=== PATIENT | male | born 1950 | race Caucasian/White ===

== ENCOUNTER → 2016-11-19 | Outpatient (CLI) | payer BC ==
[~2016-11-19] MED LIST: ASCO500T3 PO; ASPEC325 PO; HYDR-4079 PO; LCTX PO; MULT-506 PO; [UNRECOGNIZED DRUG - CODE] PO
[2016-11-19 17:38] LABS: ALT/SGPT 45 U/L (12-78); AST/SGOT 31 U/L (15-37); BLOOD UREA NITROGEN 14 mg/dl (7-18); BUN/CREATININE RATIO 16.2 (10-20); CALCIUM 8.7 mg/dl (8.5-10.1); CARBON DIOXIDE 26 mmol/L (21-32); CHLORIDE 107 mmol/L (98-107); CHOLESTEROL 199 mg/dl (0-200); CREATININE 0.88 mg/dl (0.60-1.40); GLUCOSE 95 mg/dl (70-99); SODIUM 141 mmol/L (136-145)
[2016-11-19 17:45] LABS: CHOLESTEROL/HDL RATIO 3.4; HDL CHOLESTEROL 59 mg/dl; LDL CHOLESTEROL CALCULATED 115 mg/dl; TRIGLYCERIDES 126 mg/dl (0-150); VERY LOW DENSITY LIPOPROT CALC 25 mg/dl
[2016-11-20 06:17] LABS: ESTIMATED AVERAGE GLUCOSE 128 mg/dl; HA1C FLAG Normal (Normal)
== END | disposition home or self-care (01) ==
LOC: C.LABBFT 13:48
PROVIDERS: ATTEND Internal Medicine
DX: R97.20 Elevated prostate specific antigen [PSA] (principal); R73.03 Prediabetes; E78.5 Hyperlipidemia, unspecified

== ENCOUNTER → 2016-12-13 | Outpatient (CLI) | payer OTHER, BC ==
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
== END | disposition home or self-care (01) ==
LOC: C.RAD1850 13:57
PROVIDERS: ATTEND Nurse Practitioner Family
DX: M25.561 Pain in right knee (principal)

== ENCOUNTER → 2016-12-20 | Outpatient (CLI) | payer OTHER, BC ==
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
== END | disposition home or self-care (01) ==
LOC: C.MRI 07:33 → EDSTATUS 08:00
PROVIDERS: ATTEND Nurse Practitioner Family
DX: M25.561 Pain in right knee (principal); R60.0 Localized edema; M25.461 Effusion, right knee; S83.241A Other tear of medial meniscus, current injury, right knee, initial encounter; X58.XXXA Exposure to other specified factors, initial encounter

== ENCOUNTER → 2017-08-29 | Outpatient (CLI) | payer BC, OTHER | END | disposition home or self-care (01) | LOC: C.RDSM 08:00 | PROVIDERS: ATTEND Orthopaedic Surgery Sports Medicine | DX: S89.91XA Unspecified injury of right lower leg, initial encounter (principal); X58.XXXA Exposure to other specified factors, initial encounter; Z88.6 Allergy status to analgesic agent; Z88.8 Allergy status to other drugs, medicaments and biological substances ==

== ENCOUNTER → 2017-10-15 | Outpatient (CLI) | payer OTHER, BC ==
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
== END | disposition home or self-care (01) ==
LOC: C.RAD1850 15:14
PROVIDERS: ATTEND Nurse Practitioner Family
DX: S09.90XA Unspecified injury of head, initial encounter (principal); S39.92XA Unspecified injury of lower back, initial encounter; M25.561 Pain in right knee; X58.XXXA Exposure to other specified factors, initial encounter

== ENCOUNTER → 2017-10-15 | Outpatient (CLI) | payer OTHER, BC ==
[2017-10-15 17:39] LABS: BLOOD UREA NITROGEN 14 mg/dl (7-18); CREATININE 0.83 mg/dl (0.60-1.40)
== END | disposition home or self-care (01) ==
LOC: C.LAB1850 16:20
PROVIDERS: ATTEND Nurse Practitioner Family
DX: N18.9 Chronic kidney disease, unspecified (principal)

== ENCOUNTER → 2017-10-17 | Outpatient (CLI) | payer OTHER, BC ==
[~2017-10-17] MED LIST changes: +OPTIRAY 320 IV PRN
--- NOTE | 2017-10-17 17:28 | DIAGNOSTIC IMAGING REPORT ---
HEAD COMBO CLINICAL HISTORY: 67 years-old Male presenting with CONCUSSION,R/O SUBDERMAL HEMATOMA. TECHNIQUE: Multidetector CT imaging of the head was performed before and after the administration of intravenous contrast. IV contrast: 90 mL of Optiray 320. A dose lowering technique was used consistent with the principles of ALARA (as low as reasonably achievable). COMPARISON: None. CT DOSE (mGy.cm): The estimated cumulative dose is 1277.12 mGycm. FINDINGS: Curing Bin Operator topogram: The patient is edentulous. Ventricles and sulci normal in size. Brain parenchyma normal in appearance with preserved giron-white differentiation. No mass effect or midline shift. No hemorrhage or acute territorial infarct. No extra-axial fluid collection. Paranasal sinuses and mastoid air cells clear. Calvarium intact. No abnormal parenchymal enhancement. Intracranial vasculature grossly patent. IMPRESSION: 1. No acute intracranial pathology. No abnormal enhancement. Electronically signed by: Mikael Aguilar M.D. 10/17/2017 5:26 PM Dictated Date/Time: 10/17/2017 5:23 PM
== END | disposition home or self-care (01) ==
LOC: C.CTS 16:26
PROVIDERS: ATTEND Nurse Practitioner Family
DX: S20.20XA Contusion of thorax, unspecified, initial encounter (principal); S06.0X9A Concussion with loss of consciousness of unspecified duration, initial encounter; X58.XXXA Exposure to other specified factors, initial encounter

== ENCOUNTER 2022-09-04 15:03 | Inpatient (IN) ==
[2022-09-04 16:14] LABS: Basophils # (auto) 0.03 K/uL (0-0.2); Basophils % (auto) 0.3 %; Eosinophils # (auto) 0.03 K/uL (0-0.50); Eosinophils % (auto) 0.3 %; Hemoglobin 11.8 g/dl (14.0-18.0); Immature Granulocytes # (auto) 0.04 K/uL (0.01-0.20); Immature Granulocytes % (auto) 0.4 %; Lymphocytes % (auto) 13.1 %; Mean Corpuscular Hemoglobin 30.6 pg (25.0-34.0); Mean Corpuscular Hgb Conc 33.7 g/dL (32.0-36.0); Mean Corpuscular Volume 90.7 fL (80.0-100.0); Mean Platelet Volume 8.8 fL (9.4-12.4); Monocytes # (auto) 0.84 K/uL (0.11-0.59); Monocytes % (auto) 8.5 %; Neutrophils # (auto) 7.65 K/uL (1.40-6.50); Neutrophils % (auto) 77.4 %; Platelet Count 244 K/uL (130-400); RDW Coefficient of Variation 12.4 % (11.5-14.5); RDW Standard Deviation 40.8 fL (36.4-46.3); Red Blood Count 3.86 M/uL (4.70-6.10); White Blood Count 9.89 K/ul (4.8-10.8)
[2022-09-04 16:38] LABS: Albumin Globulin Ratio 0.8 (0.9-2); Albumin Level 3.6 gm/dl (3.4-5.0); BUN Creatinine Ratio 16.7 (10-20); Bilirubin,Total 0.5 mg/dl (0.2-1.0); Calcium 9.1 mg/dl (8.5-10.1); Est GFR (African American) 105.3 ml/min; Est GFR (Non-African American) 90.8 ml/min; Globulin 4.4 gm/dl (2.5-4.0)
[2022-09-04 16:51] LABS: INR 1.1 (0.9-1.1); Partial Thromboplastin Ratio 1.1; Partial Thromboplastin Time 31.3 Seconds (21.0-31.0); Prothrombin Time 11.2 Seconds (9.0-12.0)
--- NOTE | 2022-09-04 17:00 | Emergency Department Note ---
Impression & Plan Pneumonia ADMIT ED Provider Note HPI: The patient is a 72-year-old male who presents emergency department with a chief complaint of cough and shortness of breath. Patient states that he was seen [facility], diagnosed with pneumonia and told to go to the emergency room. Patient states that he was told not to drive himself but he did anyway, on arrival here to the ED he was noted to be hypoxic in the 80s and was placed on nasal cannula oxygen with good improvement. Patient states that he has had a cough now for about the past 2 to 3 weeks. States it has been productive for some mucus. Patient states he has developed some shortness of breath with this as well. On arrival here to the ED the patient was noted to be hypoxic, he is otherwise afebrile and hemodynamically stable. ROS: - Per HPI *Outpatient medications and allergy history reviewed. *Pertinent external medical records reviewed. 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 On arrival to the ED the patient is hypoxic at 85% on room air and therefore was placed on nasal cannula oxygen with good improvement. IV was established, lab work obtained, patient was placed on cardiac nurse. Lab work does not show any leukocytosis, troponin is negative, EKG shows normal sinus rhythm with a rate of 88. Chest x-ray does show evidence of a bibasilar pneumonia and multifocal pneumonia pattern with also right-sided midlung op acity. I do suspect this is the source of the patient's hypoxia given his shortness of breath and cough. COVID-19 testing is negative as is influenza testing he does not have a fever, he does not have a leukocytosis, blood cultures were ordered and patient was started on ceftriaxone and azithromycin, he does have a longstanding history of smoking. Venous blood gas shows normal pH. Given the patient's hypoxia, I did recommend admission to which the patient was in agreement as is his at the bedside. Consultation was placed for the on- call hospitalist service for admission, and the patient was placed for admission in stable condition for further care. Consultants: Hospitalist service Disposition discussion held by myself with: Patient and at bedside * CRITICAL CARE TIME: ( 42 ) minutes -Stabilization of hypoxia with oxygen saturation less than 90% on room air requiring supplemental oxygen for improvement, time spent at the bedside, interpretation of EKG and diagnostic studies, and arrangement of admission Diagnosis: 1. Multifocal pneumonia, acute 2. Hypoxia, acute 3. Cough, acute Disposition:ADMIT Paul Mir, DO Emergency Medicine Past Med/Surg History Medical History BPH (benign prostatic hyperplasia) Chronic pain Hx of concussion Hypothyroidism Low back pain Osteoarthritis Pneumonia (2016) Tinnitus Surgical History H/O colonoscopy History of arthroscopy History of microdiscectomy History of tooth extraction S/P thyroid biopsy Family History Unknown Coronary heart disease Mother Vitamin B12 deficiency Father Myocardial infarction Daughter Crohn's disease Denies family history of Prostate cancer Breast cancer Colorectal cancer Social History Smoking Status: Current every day smoker Tobacco Type: Cigarettes packs per day: 1; Cigarettes Per Day: 1 pk or less per day; Second Hand Exposure: No; Hx Alcohol Use: No Hx Substance Use: No Preferred Language: Kinyarwanda Communication Ability: Effective 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 Beliefs That Will Affect Care: None marital status: Current Living Situation: Spouse current occupational status: unemployed How many Children do You have: 2 Feels Safe at Home: Yes during the past year weight has: remained stable Assistive Devices: Denture - Upper, Denture - Lower and Glasses Allergies Allergies Allergy/AdvReac Type Severity Reaction Status Date / Time gabapentin Allergy Intermediate CAUSED Verified 09/04/22 17:13 TINNITIS capsaicin AdvReac Mild NAUSEA/VOMI Verified 09/04/22 17:13 TTING celecoxib AdvReac Mild SICK TO Verified 09/04/22 17:13 STOMACH diclofenac AdvReac Mild NAUSEA/VOMI Verified 09/04/22 17:13 TTING ibuprofen AdvReac Mild NAUSEA/VOMI Verified 09/04/22 17:13 TTING methocarbamol AdvReac Mild CAN NOT Verified 09/04/22 17:13 TAKE MUSCLE RELAXERS, CAN'T FUNCTION MUSCLE RELAXERS AdvReac Mild "HEAD Uncoded 09/04/22 17:13 FEELS FUNNY" Home Meds Home Medications Medication Instructions Recorded Confirmed levothyroxine 175 mcg tablet 175 mcg PO QAM 02/20/22 09/04/22 Previous Rx's Medication Instructions Recorded hydrocodone 10 mg-acetaminophen 1 tab PO Q4H PRN pain 30 days #180 08/09/22 325 mg tablet tabs Results & Data (ED) Vital Signs Vital Signs - 24 hr 09/04/22 15:18 09/04/22 15:21 Temperature 36.5 C Temperature Source Temporal Artery Scan Pulse Rate 89 Respiratory Rate 24 Respiratory Effort / Characteristics Non-Labored Blood Pressure 123/85 Blood Pressure Mean 97 Pulse Oximetry 85 L 92 Oxygen Delivery Method Room Air Nasal Cannula Oxygen Flow Rate 2 Sepsis Recent Fever Within 48 Hours No Sepsis New/Unexplained Change in Mental Status N/A Sepsis Action Taken by Nursing No Action Required Laboratory Data 09/04/22 15:30 09/04/22 15:30 Lab Results 09/04/22 09/04/22 09/04/22 Range/Units 15:30 15:30 15:30 WBC 9.89 (4.8-10.8) K/ul RBC 3.86 L (4.70-6.10) M/uL Hgb 11.8 L (14.0-18.0) g/dl Hct 35.0 L (42.0-52.0) % MCV 90.7 (80.0-100.0) fL MCH 30.6 (25.0-34.0) pg MCHC 33.7 (32.0-36.0) g/dL RDW Std Deviation 40.8 (36.4-46.3) fL RDW Coeff of Lico 12.4 (11.5-14.5) % Plt Count 244 (130-400) K/uL MPV 8.8 L (9.4-12.4) fL Immature Gran % (Auto) 0.4 % Neut % (Auto) 77.4 % Lymph % (Auto) 13.1 % Upton % (Auto) 8.5 % Eos % (Auto) 0.3 % Baso % (Auto) 0.3 % Neut # (Auto) 7.65 H (1.40-6.50) K/uL Lymph # (Auto) 1.30 (1.2-3.4) K/uL Upton # (Auto) 0.84 H (0.11-0.59) K/uL Eos # (Auto) 0.03 (0-0.50) K/uL Baso # (Auto) 0.03 (0-0.2) K/uL Immature Gran # (Auto) 0.04 (0.01-0.20) K/uL PT 11.2 (9.0-12.0) Seconds INR 1.1 (0.9-1.1) APTT 31.3 H (21.0-31.0) Seconds PTT Ratio 1.1 VBG pH (7.36-7.41) VBG pCO2 (38-50) mmHg VBG pO2 mmHg VBG HCO3 mmol/L VBG O2 Saturation % VBG Base Excess mEq/L Sodium 131 L (136-145) mmol/L Potassium 4.0 (3.5-5.1) mmol/L Chloride 93 L (98-107) mmol/L Carbon Dioxide 31 (21-32) mmol/L Anion Gap 7 (3-11) BUN 13 (6-23) mg/dl Creatinine 0.78 (0.6-1.4) mg/dl Est Cr Clr Drug Dosing 85.0 ml/min Est GFR ( Amer) 105.3 ml/min Est GFR (Non-Af Amer) 90.8 ml/min BUN/Creatinine Ratio 16.7 (10-20) Glucose 101 H (70-99(Fasting)) mg/dl Lactate (0.4-2.0) mmol/L Calcium 9.1 (8.5-10.1) mg/dl Magnesium 2.0 (1.7-2.4) mg/dl Total Bilirubin 0.5 (0.2-1.0) mg/dl AST 27 (13-39) U/L ALT 24 (7-52) U/L Alkaline Phosphatase 137 H (34-104) U/L Troponin I High Sens 12.2 (0-20) pg/ml B-Natriuretic Peptide (0-100) pg/ml Total Protein 8.0 (6.0-8.3) gm/dl Albumin 3.6 (3.4-5.0) gm/dl Globulin 4.4 H (2.5-4.0) gm/dl Albumin/Globulin Ratio 0.8 L (0.9-2) SARS-CoV-2 (PCR) (Negative) Influenza Type A (PCR) (Neg) Influenza Type B (PCR) (Neg) RSV (RT-PCR) (Neg) 09/04/22 09/04/22 09/04/22 Range/Units 15:34 17:09 17:09 WBC (4.8-10.8) K/ul RBC (4.70-6.10) M/uL Hgb (14.0-18.0) g/dl Hct (42.0-52.0) % MCV (80.0-100.0) fL MCH (25.0-34.0) pg MCHC (32.0-36.0) g/dL RDW Std Deviation (36.4-46.3) fL RDW Coeff of Lico (11.5-14.5) % Plt Count (130-400) K/uL MPV (9.4-12.4) fL Immature Gran % (Auto) % Neut % (Auto) % Lymph % (Auto) % Upton % (Auto) % Eos % (Auto) % Baso % (Auto) % Neut # (Auto) (1.40-6.50) K/uL Lymph # (Auto) (1.2-3.4) K/uL Upton # (Auto) (0.11-0.59) K/uL Eos # (Auto) (0-0.50) K/uL Baso # (Auto) (0-0.2) K/uL Immature Gran # (Auto) (0.01-0.20) K/uL PT (9.0-12.0) Seconds INR (0.9-1.1) APTT (21.0-31.0) Seconds PTT Ratio VBG pH 7.41 (7.36-7.41) VBG pCO2 54 H (38-50) mmHg VBG pO2 32 mmHg VBG HCO3 34 mmol/L VBG O2 Saturation < 60.0 % VBG Base Excess 7.8 mEq/L Sodium (136-145) mmol/L Potassium (3.5-5.1) mmol/L Chloride (98-107) mmol/L Carbon Dioxide (21-32) mmol/L Anion Gap (3-11) BUN (6-23) mg/dl Creatinine (0.6-1.4) mg/dl Est Cr Clr Drug Dosing ml/min Est GFR ( Amer) ml/min Est GFR (Non-Af Amer) ml/min BUN/Creatinine Ratio (10-20) Glucose (70-99(Fasting)) mg/dl Lactate 1.3 (0.4-2.0) mmol/L Calcium (8.5-10.1) mg/dl Magnesium (1.7-2.4) mg/dl Total Bilirubin (0.2-1.0) mg/dl AST (13-39) U/L ALT (7-52) U/L Alkaline Phosphatase (34-104) U/L Troponin I High Sens (0-20) pg/ml B-Natriuretic Peptide (0-100) pg/ml Total Protein (6.0-8.3) gm/dl Albumin (3.4-5.0) gm/dl Globulin (2.5-4.0) gm/dl Albumin/Globulin Ratio (0.9-2) SARS-CoV-2 (PCR) NEGATIVE (Negative) Influenza Type A (PCR) Negative (Neg) Influenza Type B (PCR) Negative (Neg) RSV (RT-PCR) Negative (Neg) 09/04/22 Range/Units 17:13 WBC (4.8-10.8) K/ul RBC (4.70-6.10) M/uL Hgb (14.0-18.0) g/dl Hct (42.0-52.0) % MCV (80.0-100.0) fL MCH (25.0-34.0) pg MCHC (32.0-36.0) g/dL RDW Std Deviation (36.4-46.3) fL RDW Coeff of Lico (11.5-14.5) % Plt Count (130-400) K/uL MPV (9.4-12.4) fL Immature Gran % (Auto) % Neut % (Auto) % Lymph % (Auto) % Upton % (Auto) % Eos % (Auto) % Baso % (Auto) % Neut # (Auto) (1.40-6.50) K/uL Lymph # (Auto) (1.2-3.4) K/uL Upton # (Auto) (0.11-0.59) K/uL Eos # (Auto) (0-0.50) K/uL Baso # (Auto) (0-0.2) K/uL Immature Gran # (Auto) (0.01-0.20) K/uL PT (9.0-12.0) Seconds INR (0.9-1.1) APTT (21.0-31.0) Seconds PTT Ratio VBG pH (7.36-7.41) VBG pCO2 (38-50) mmHg VBG pO2 mmHg VBG HCO3 mmol/L VBG O2 Saturation % VBG Base Excess mEq/L Sodium (136-145) mmol/L Potassium (3.5-5.1) mmol/L Chloride (98-107) mmol/L Carbon Dioxide (21-32) mmol/L Anion Gap (3-11) BUN (6-23) mg/dl Creatinine (0.6-1.4) mg/dl Est Cr Clr Drug Dosing ml/min Est GFR ( Amer) ml/min Est GFR (Non-Af Amer) ml/min BUN/Creatinine Ratio (10-20) Glucose (70-99(Fasting)) mg/dl Lactate (0.4-2.0) mmol/L Calcium (8.5-10.1) mg/dl Magnesium (1.7-2.4) mg/dl Total Bilirubin (0.2-1.0) mg/dl AST (13-39) U/L ALT (7-52) U/L Alkaline Phosphatase (34-104) U/L Troponin I High Sens (0-20) pg/ml B-Natriuretic Peptide 29 (0-100) pg/ml Total Protein (6.0-8.3) gm/dl Albumin (3.4-5.0) gm/dl Globulin (2.5-4.0) gm/dl Albumin/Globulin Ratio (0.9-2) SARS-CoV-2 (PCR) (Negative) Influenza Type A (PCR) (Neg) Influenza Type B (PCR) (Neg) RSV (RT-PCR) (Neg) Imaging Data Radiologist's Impression: Chest X-Ray 09/04/22 15:25 XR chest 1V portable CLINICAL HISTORY: Shortness of breath. COMPARISON STUDY: Chest radiograph October 18, 2015. FINDINGS: There is underlying emphysema. No pneumothorax or pleural effusion is present. Bibasilar opacities are noted. These are relatively similar in appearance to prior chest radiograph of October 18, 2015. There is also mild right midlung opacity. Cardiac size is normal. Mild upper mediastinal widening is similar to prior exam. Patient is mildly rotated. IMPRESSION: 1. Bibasilar and right midlung airspace opacities. The findings favor an infectious process such as multifocal pneumonia. Post treatment radiographs to ensure resolution are recommended. 2. Emphysema. ACT 112: Negative or not required by law. Electronically signed by: Sly Velazquez M.D. 09/04/2022 6:19 PM Discharge Plan Visit Data Chief Complaint: Illness Stated Complaint: HYPOXIA ED Provider: Paul Mir Discharge Problem: Pneumonia Forms Stand Alone Forms: [employer] Prescriptions Prescriptions: No Action hydrocodone-acetaminophen 10-325 mg tablet 1 tab PO Q4H PRN (Reason: pain) 30 Days Qty: 180 0RF levothyroxine 175 mcg tablet 175 mcg PO QAM Referrals Referrals: Ferny Helms MD [Primary Care Provider] - Pneumonia Qualifiers: Pneumonia type: due to unspecified organism Laterality: bilateral Lung location: unspecified part of lung Qualified Code(s): J18.9 - Pneumonia, unspecified organism
[2022-09-04 17:09] LABS: Influenza A virus by PCR Negative (Neg); Influenza B virus by PCR Negative (Neg); RSV by PCR Negative (Neg); SARS CoV2 RNA(COVID-19) Ceph NEGATIVE (Negative)
[2022-09-04 17:22] LABS: Base Excess VBG 7.8 mEq/L; HCO3 VBG 34 mmol/L; Oxygen Saturation VBG < 60.0 %; PCO2 VBG 54 mmHg (38-50); PO2 VBG 32 mmHg; pH VBG 7.41 (7.36-7.41)
[2022-09-04 17:32] LABS: Troponin I High Sensitivity 12.2 pg/ml (0-20)
--- NOTE | 2022-09-04 18:22 | XRay Report ---
XR chest 1V portable CLINICAL HISTORY: Shortness of breath. COMPARISON STUDY: Chest radiograph October 18, 2015. FINDINGS: There is underlying emphysema. No pneumothorax or pleural effusion is present. Bibasilar op acities are noted. These are relatively similar in appearance to prior chest radiograph of October 18, 2015. There is also mild right midlung opacity. Cardiac size is normal. Mild upper mediastinal wideni ng is similar to prior exam. Patient is mildly rotated. IMPRESSION: 1. Bibasilar and right midlung airspace opacities. The findings favor an infectious process such as m ultifocal pneumonia. Post treatment radiographs to ensure resolution are recommended. 2. Emphysema. ACT 112: Negative or not required by law. Electronically signed by: Sly Velazquez M.D. 09/04/2022 6:19 PM
[2022-09-04] MEDS ORDERED: cefTRIAXone SODIUM 1,000 MG in DEXTROSE 5% AD-VAN 50 ML IV STA (18:23)
[2022-09-04] MEDS ORDERED: AZITHROMYCIN 500 MG in DEXTROSE 5% 250 ML IV STA (18:23)
[2022-09-04] MEDS ORDERED: AMPICILLIN/SULBACTAM SOD 3,000 MG in 0.9 % SODIUM CHLORIDE 100 ML IV STA (18:49)
--- NOTE | 2022-09-04 19:03 | History & Physical Report ---
Date of Service September 04, 2022 Assessment & Plan (1) Pneumonia: Plan: Unasyn 3 g IV every 6 hourly (7 days) plus azithromycin 500 mg (3 days) Sputum culture Incentive spirometer Flutter valve (2) Hypothyroidism: Plan: TSH 0.838 in July 2022 Continue levothyroxine 175 mcg p.o. daily (3) Chronic pain: Plan: Unable to clarify [place] on PDMP as does not appear to be working correctly Acetaminophen as needed (4) Tobacco abuse: Plan: Patient declines nicotine patch Plan VTE Prophylaxis - Lovenox 40mg SQ daily Diet - regular Disposition - admit to med/surg Admission and Anticipated Discharge Date Admission Date: September 04, 2022 History of Present Illness Chief Complaint: Shortness of breath Primary Care Provider: Ferny Helms MD Bebo Stark is a 72-year-old male smoker who presents to the ER on the advice of [facility] due to pneumonia and hypoxia. Difficult to get a history from the patient as he initially tells me he does not want to talk to me. However with s ome persuasion from his he reports a 10-day history of progressively worsening cough, decreased appetite, shortness of breath, dizziness on exertion. No sinus pain, chest pain, abdominal pain, nausea, vomiting, fever, chills, diarrhea, constipation, melena, bright red blood in stool, hemoptysis, hematemesis. He is a current smoker with 10 cigarettes a day. No known COPD and has never needed an inhaler for respiratory illnesses. Allergies Allergy/AdvReac Type Severity Reaction Status Date / Time gabapentin Allergy Intermediate CAUSED Verified 09/04/22 17:13 TINNITIS capsaicin AdvReac Mild NAUSEA/VOMI Verified 09/04/22 17:13 TTING celecoxib AdvReac Mild SICK TO Verified 09/04/22 17:13 STOMACH diclofenac AdvReac Mild NAUSEA/VOMI Verified 09/04/22 17:13 TTING ibuprofen AdvReac Mild NAUSEA/VOMI Verified 09/04/22 17:13 TTING methocarbamol AdvReac Mild CAN NOT Verified 09/04/22 17:13 TAKE MUSCLE RELAXERS, CAN'T FUNCTION MUSCLE RELAXERS AdvReac Mild "HEAD Uncoded 09/04/22 17:13 FEELS FUNNY" Home Medications Medication Instructions Recorded Confirmed Type levothyroxine 175 mcg tablet 175 mcg PO QAM 02/20/22 09/04/22 History hydrocodone 10 mg-acetaminophen 1 tab PO Q4H PRN pain 30 days #180 08/09/22 09/04/22 Rx 325 mg tablet tabs Past Med/Surg History Medical History BPH (benign prostatic hyperplasia) Chronic pain HIP/KNEES/BACK Hx of concussion Hypothyroidism Low back pain Osteoarthritis Pneumonia (2016) Tinnitus Surgical History H/O colonoscopy History of arthroscopy LEFT KNEE History of microdiscectomy LUMBAR History of tooth extraction S/P thyroid biopsy Family History Unknown Coronary heart disease Mother Vitamin B12 deficiency Father Myocardial infarction Daughter Crohn's disease Denies family history of Prostate cancer Breast cancer Colorectal cancer Social History Smoking Status: Current every day smoker Tobacco Type: Cigarettes packs per day: 1; Cigarettes Per Day: 1 pk or less per day; Second Hand Exposure: No; Hx Alcohol Use: No Hx Substance Use: No Preferred Language: Bulgarian Communication Ability: Effective Rail Walker Required: No Beliefs That Will Affect Care: None marital status: Current Living Situation: Spouse current occupational status: unemployed How many Children do You have: 2 Feels Safe at Home: Yes during the past year weight has: remained stable Assistive Devices: Denture - Upper, Denture - Lower and Glasses Review of Systems Review of Systems: All systems reviewed & are unremarkable except as noted in HPI & below Physical Exam Constitutional: well developed and + ill appearing; + not well nourished and no acute distress Eyes: + anicteric sclerae; normal pupil size Respiratory: normal respiratory effort; no respiratory distress Auscultation: + diminished lung sounds (Posteriorly) Cardiovascular: RRR, no murmur, no edema Gastrointestinal (Abdomen): normal bowel sounds, soft, nontender, no hepatosplenomegaly Skin: no rashes, warm and dry Neurologic: moves all extremities and awake; not confused Psychiatric: A+Ox3, euthymic affect Results & Data Results & Data ([facility]) Vital Signs (Past 12 Hours) Vital Signs Temp Pulse Resp BP Pulse Ox O2 Del Method O2 Flow Rate 09/04/22 15:21 92 Nasal Cannula 2 09/04/22 15:18 36.5 C 89 24 123/85 85 L Room Air Laboratory Results Abnormal lab results 09/04/22 09/04/22 09/04/22 Range/Units 15:30 15:30 15:30 RBC 3.86 L (4.70-6.10) M/uL Hgb 11.8 L (14.0-18.0) g/dl Hct 35.0 L (42.0-52.0) % MPV 8.8 L (9.4-12.4) fL Neut # (Auto) 7.65 H (1.40-6.50) K/uL Trinity # (Auto) 0.84 H (0.11-0.59) K/uL APTT 31.3 H (21.0-31.0) Seconds VBG pCO2 (38-50) mmHg Sodium 131 L (136-145) mmol/L Chloride 93 L (98-107) mmol/L Glucose 101 H (70-99(Fasting)) mg/dl Alkaline Phosphatase 137 H (34-104) U/L Globulin 4.4 H (2.5-4.0) gm/dl Albumin/Globulin Ratio 0.8 L (0.9-2) 09/04/22 Range/Units 17:09 RBC (4.70-6.10) M/uL Hgb (14.0-18.0) g/dl Hct (42.0-52.0) % MPV (9.4-12.4) fL Neut # (Auto) (1.40-6.50) K/uL Trinity # (Auto) (0.11-0.59) K/uL APTT (21.0-31.0) Seconds VBG pCO2 54 H (38-50) mmHg Sodium (136-145) mmol/L Chloride (98-107) mmol/L Glucose (70-99(Fasting)) mg/dl Alkaline Phosphatase (34-104) U/L Globulin (2.5-4.0) gm/dl Albumin/Globulin Ratio (0.9-2) Diagnostic Findings XR chest 1V portable CLINICAL HISTORY: Shortness of breath. COMPARISON STUDY: Chest radiograph October 18, 2015. FINDINGS: There is underlying emphysema. No pneumothorax or pleural effusion is present. Bibasilar opacities are noted. These are relatively similar in appearance to prior chest radiograph of October 18, 2015. There is also mild right midlung opacity. Cardiac size is normal. Mild upper mediastinal widening is similar to prior exam. Patient is mildly rotated. IMPRESSION: 1. Bibasilar and right midlung airspace opacities. The findings favor an infectious process such as multifocal pneumonia. Post treatment radiographs to ensure resolution are recommended. 2. Emphysema. Medications Administered ER medications given: Azithromycin 500 mg IV Ceftriaxone 1 g IV - discontinued prior to being given a ECG Indication: SOB/dyspnea Rate (beats per minute): 88 Rhythm: normal sinus Findings: + nonspecific-ST abn; no acute ischemic change Comparison ECG Date: from (October 18, 2015) Change: no significant change Code Status & VTE Plan Code Status Full VTE Prophylaxis Plan VTE Prophylaxis will be ordered: Yes PG Care Time/CCT Total # of Minutes Spent Total Time Spent with Patient: Total time spent is greater than 50% in coordination of care (as documented) at patient's floor/unit and/or counseling patient: Coding Level of Care Code 26756 INT INP/OBS CARE 2/55MIN Diagnoses Pneumonia J18.9 Laterality: bilateral Lung location: unspecified part of lung Pneumonia type: due to unspecified organism Hypothyroidism E03.9 Chronic pain G89.29 Tobacco abuse Z72.0 (1) Pneumonia Laterality: bilateral Lung location: unspecified part of lung Pneumonia type: due to unspecified organism Qualified Code(s): J18.9 - Pneumonia, unspecified organism
[2022-09-04] MEDS ORDERED: ONDANSETRON INJ 2 MG/ML 2 ML VIAL IV PRN (19:29)
[2022-09-04] MEDS ORDERED: ACETAMINOPHEN 325 MG TAB PO PRN (19:29)
[2022-09-04] MEDS ORDERED: SODIUM CHLORIDE 0.9% 1000ML 1,000 ML IV SCH (20:45)
[2022-09-04] MEDS: ENOXAPARIN INJ 40 MG/0.4 ML SYR SQ SCH (22:12)
[2022-09-05] MEDS: AMPICILLIN/SULBACTAM SOD 3,000 MG in 0.9 % SODIUM CHLORIDE 100 ML IV SCH ×4 (00:44→19:58)
--- NOTE | 2022-09-05 05:21 | Electrocardiogram Report ---
Test Reason : Blood Pressure : / mmHG Vent. Rate : 088 BPM Atrial Rate : 088 BPM P-R Int : 132 ms QRS Dur : 098 ms QT Int : 344 ms P-R-T Axes : 065 018 073 degrees QTc Int : 416 ms Normal sinus rhythm Minimal voltage criteria for LVH, may be normal variant Incomplete right bundle branch block Abnormal ECG When compared with ECG of 18-OCT-2015 11:38, No significant change was found Confirmed by Marcus Alford ([id number]) on 09/05/2022 5:20:35 AM Referred By: Confirmed By:Marcus Alford
[2022-09-05] MEDS: LEVOTHYROXINE SODIUM 175 MCG TABLET PO SCH (06:28)
[2022-09-05 06:58] LABS: Basophils # (auto) 0.02 K/uL (0-0.2); Basophils % (auto) 0.2 %; Hematocrit (blood only) 32.2 % (42.0-52.0); Immature Granulocytes # (auto) 0.07 K/uL (0.01-0.20); Immature Granulocytes % (auto) 0.6 %; Lymphocytes # (auto) 0.92 K/uL (1.2-3.4); Lymphocytes % (auto) 8.5 %; Mean Corpuscular Hemoglobin 30.3 pg (25.0-34.0); Mean Corpuscular Hgb Conc 34.2 g/dL (32.0-36.0); Mean Corpuscular Volume 88.7 fL (80.0-100.0); Mean Platelet Volume 8.9 fL (9.4-12.4); Monocytes # (auto) 0.88 K/uL (0.11-0.59); Monocytes % (auto) 8.1 %; Neutrophils # (auto) 8.93 K/uL (1.40-6.50); Neutrophils % (auto) 82.6 %; Platelet Count 228 K/uL (130-400); RDW Coefficient of Variation 12.4 % (11.5-14.5); RDW Standard Deviation 40.7 fL (36.4-46.3); Red Blood Count 3.63 M/uL (4.70-6.10); White Blood Count 10.82 K/ul (4.8-10.8)
[2022-09-05 07:42] LABS: Calcium 8.1 mg/dl (8.5-10.1); Creatinine Clr Calc Pharmacy 87.8 ml/min; Est GFR (Non-African American) 92.3 ml/min
--- NOTE | 2022-09-05 08:15 | Hospitalist Progress Note ---
Date of Service September 05, 2022 Assessment & Plan (1) Pneumonia: Plan: 72 yo male presented with 2 weeks of progressively worsening cough and shortness of breath following a URI. Differential includes pneumonia vs. COPD exacerbation given long standing smoking history and CXR consistent with both infiltrates and emphysema. - Unasyn 3 g IV every 6 hourly (7 days) plus azithromycin 500 mg (3 days) - procal wnl, MRSA nares neg - On 2L oxygen. Cont. maintenance IVF. - Albuterol and Incruse inhalers. Started prednisone 40mg po daily. - Blood cultures no growth thus far - Incentive spirometer, Flutter valve - Consider outpatient PFTs (2) Hypothyroidism: Plan: - TSH 0.838 in July 2022 - Continue levothyroxine 175 mcg p.o. daily (3) Chronic pain: Plan: - Acetaminophen as needed - hold home narcotics as they are as needed at home; can be given if pt asks (4) Tobacco abuse: Plan: - declines nicotine patch Plan DVT ppe - Lovenox 40mg SQ daily Diet - regular Code - full Disposition - med surg Admission and Anticipated Discharge Date Admission Date: September 04, 2022 Supervising Physician Co-Signing Physician Notes I personally examined the patient and verified all hubbard points of history and exam, discussed case, and agree with decision making with Austin Carlos MS2 Fairly sleepy whenever I see him. Most of my version of the HPI and review of systems are obtainable from . She notes that he was sick with a cough and what seemed to be a sinus infection for several days, then felt better for a day or so, before rapidly worsening. She really wanted to bring him to the hospital or at least PCP for a day or 2 before finally convincing him to come. She notes that he is a little bit off, seems easily confused. Vitals noted, in general he is generally sleeping but in no distress. Breathing unlabored no accessory muscle use good effort. Skin shows no rashes no pallor or icterus. Labs and x-ray reviewed. Community-acquired pneumonia with mild hypoxic respiratory failure/mild hypercapnic respiratory failuretreat as CAP with presumed COPD exacerbation as wellantibiotics, steroids, inhalers. As he improves, then probably transition to more of a chronic COPD management for now, with PFTs in about 6 to 8 weeks (and cessation of inhalers if they are normal, continuance of inhalers if they confirm COPD), repeat chest x-ray in about a month, sooner if there is any worsening. Otherwise continue current care. Delirium/metabolic encephalopathylikely due to infection/respiratory illness. Explained extensively to , continue reassurance/reorientation/supportive care. Otherwise as above Subjective 72 yo male presented to ED on 09/04 from urgent care with a concern of pneumonia. He had 2-3 week of a cough productive of clear/white mucus and shortness of breath. No fever, nausea, vomiting or diarrhea. Per history from his he had a few days of a head cold that improved for two days and then progressed to cough and SOB. He had a pneumonia approximately 4 years ago with sepsis at that admission. Today he continues have a cough that feels worse and shortness of breath is about the same. He is able to ambulate to the bathroom without significant shortness of breath or lightheadedness. He is not on home inhalers or oxygen. Review of Systems Review of Systems: See HPI Physical Exam Eyes: PERRL, conjunctivae normal, anicteric sclerae Respiratory: normal respiratory effort, + cough and + audible wheezes Auscultation: lungs clear to auscultation bilaterally and + diminished lung sounds diminished bibasilar breath sounds Cardiovascular: RRR, no murmur, no edema Gastrointestinal (Abdomen): normal bowel sounds, soft, nontender, no hepatos plenomegaly Psychiatric: A+Ox3, euthymic affect Results & Data Results & Data ([facility]) Vital Signs (Past 12 Hours) Vital Signs Temp Pulse Pulse Resp BP BP Pulse Ox 09/05/22 07:46 37.0 C 90 16 118/68 94 09/05/22 03:01 37.6 C H 89 20 122/68 93 09/05/22 00:48 94 H 93 09/04/22 22:40 37.3 C 91 H 20 115/74 93 09/04/22 22:40 09/04/22 22:40 37.3 C 91 H 18 115/74 93 09/04/22 21:04 89 14 127/89 95 09/04/22 22:04 89 12 129/78 98 O2 Del Method O2 Flow Rate 09/05/22 07:46 Nasal Cannula 2 09/05/22 03:01 Nasal Cannula 2 09/05/22 00:48 Nasal Cannula 2 09/04/22 22:40 Nasal Cannula 4.0 09/04/22 22:40 Nasal Cannula 4 09/04/22 22:40 Nasal Cannula 4 09/04/22 21:04 Nasal Cannula 2 09/04/22 22:04 Laboratory Results 09/05/22 06:06 09/05/22 06:06 Resident Activity Tracking Resident Involvement: Resident Care Provided Care Provided: Adult Hospital Medicine (1) Pneumonia Laterality: bilateral Lung location: unspecified part of lung Pneumonia type: due to unspecified organism Qualified Code(s): J18.9 - Pneumonia, unspecified organism
[2022-09-05] MEDS ORDERED: LEVOTHYROXINE SODIUM 175 MCG TABLET PO SCH (09:00)
[2022-09-05] MEDS: AZITHROMYCIN 250 MG TAB PO SCH (09:24)
[2022-09-05] MEDS ORDERED: BENZONATATE 100 MG CAPSULE PO ONE (10:32)
[2022-09-05] MEDS ORDERED: BENZONATATE 100 MG CAPSULE PO PRN (10:32)
[2022-09-05] MEDS ORDERED: ALBUTEROL HFA 8 GM INHALER INH PRN (15:01)
[2022-09-05] MEDS: UMECLIDINIUM BROMIDE 62.5MCG/BLISTER 7 PUFFS/INHALER INH SCH (17:31)
[2022-09-05] MEDS: predniSONE 20 MG TAB PO SCH (17:31)
[2022-09-05] MEDS: SODIUM CHLORIDE 0.9% 1000ML 1,000 ML IV SCH (17:31)
--- NOTE | 2022-09-05 18:10 | Billing Data ---
Date of Service September 05, 2022 Coding Level of Care Code 51021 SUB INP/OBS CARE 3MIN
[2022-09-05] MEDS: ENOXAPARIN INJ 40 MG/0.4 ML SYR SQ SCH (20:02)
[2022-09-06] MEDS: AMPICILLIN/SULBACTAM SOD 3,000 MG in 0.9 % SODIUM CHLORIDE 100 ML IV SCH ×4 (01:00→20:03)
[2022-09-06] MEDS: SODIUM CHLORIDE 0.9% 1000ML 1,000 ML IV SCH (04:39)
[2022-09-06] MEDS: LEVOTHYROXINE SODIUM 175 MCG TABLET PO SCH (06:24)
[2022-09-06 07:04] LABS: Basophils # (auto) 0.01 K/uL (0-0.2); Basophils % (auto) 0.1 %; Hematocrit (blood only) 34.3 % (42.0-52.0); Hemoglobin 11.4 g/dl (14.0-18.0); Immature Granulocytes # (auto) 0.05 K/uL (0.01-0.20); Immature Granulocytes % (auto) 0.6 %; Lymphocytes % (auto) 9.6 %; Mean Corpuscular Hemoglobin 30.4 pg (25.0-34.0); Mean Corpuscular Hgb Conc 33.2 g/dL (32.0-36.0); Mean Corpuscular Volume 91.5 fL (80.0-100.0); Mean Platelet Volume 8.9 fL (9.4-12.4); Monocytes # (auto) 0.31 K/uL (0.11-0.59); Monocytes % (auto) 3.7 %; Platelet Count 268 K/uL (130-400); RDW Coefficient of Variation 12.6 % (11.5-14.5); RDW Standard Deviation 42.1 fL (36.4-46.3); Red Blood Count 3.75 M/uL (4.70-6.10); White Blood Count 8.37 K/ul (4.8-10.8)
[2022-09-06 07:23] LABS: Albumin Globulin Ratio 0.8 (0.9-2); Albumin Level 2.9 gm/dl (3.4-5.0); BUN Creatinine Ratio 15.4 (10-20); Bilirubin,Total 0.3 mg/dl (0.2-1.0); Calcium 8.4 mg/dl (8.5-10.1); Creatinine Clr Calc Pharmacy 101.3 ml/min; Est GFR (African American) 113.4 ml/min; Est GFR (Non-African American) 97.9 ml/min; Globulin 3.8 gm/dl (2.5-4.0); Potassium 4.2 mmol/L (3.5-5.1); Total Protein 6.7 gm/dl (6.0-8.3)
[2022-09-06] MEDS: AZITHROMYCIN 250 MG TAB PO SCH (08:21)
[2022-09-06] MEDS: UMECLIDINIUM BROMIDE 62.5MCG/BLISTER 7 PUFFS/INHALER INH SCH (08:21)
[2022-09-06] MEDS: predniSONE 20 MG TAB PO SCH (08:21)
--- NOTE | 2022-09-06 10:31 | Hospitalist Progress Note ---
Date of Service September 06, 2022 Assessment & Plan (1) Pneumonia: Plan: 72 yo male presented with 2 weeks of progressively worsening cough and shortness of breath following a URI. Differential includes pneumonia vs. COPD exacerbation given long standing smoking history and CXR consistent with both infiltrates and emphysema. - CXR showed emphysemic changes and infiltrates - Blood cultures no growth at 24 hours - Community acquired pneumonia coverage: 1 dose Ceftriaxone 1000mg given in the ED, Unasyn 3 g IV every 6 hourly, changed to Augmentin BID (09/06) (7 days) plus azithromycin 500 mg (3 days) started 09/05 - Prednisone 40 mg q.d started 09/05 for possible COPD exacerbation, can start taper on d/c, drop 10mg every 2 days - On 2L oxygen, satting 94%, consider home oxygen depending on sats at rest and on ambulation - Albuterol and Incruse inhalers - Benzonatate PRN for cough - Incentive spirometer - Consider outpatient PFTs to evaluate for emphysema/COPD (2) Hypothyroidism: Plan: - TSH 0.838 in July 2022 - Continue levothyroxine 175 mcg p.o. daily (3) Chronic pain: Plan: - Unable to clarify [place] on PDMP as does not appear to be working correctly - Acetaminophen as needed (4) Tobacco abuse: Plan: - Patient declines nicotine patch Plan VTE Prophylaxis - Lovenox 40mg SQ daily Diet - regular Code - full Disposition - admit to med/surg Admission and Anticipated Discharge Date Admission Date: September 04, 2022 Supervising Physician Co-Signing Physician Notes I personally examined the patient and verified all hubbard points of history and exam, discussed case, and agree with decision making with Austin Gonzalez MS4 Feeling probably on the better side of the same. Still some shortness of breath, still not entirely at baseline. But feeling reasonable. Would very much like to go home soon. Vitals noted, in general he is generally sleeping but in no distress. Breathing unlabored no accessory muscle use good effort. Diminished breath sounds base left, faint scattered rhonchi mid right. Skin shows no rashes no pallor or icterus. Labs reviewed. Community-acquired pneumonia with mild hypoxic respiratory failure/mild hypercapnic respiratory failuretreat as CAP with presumed COPD exacerbation as wellantibiotics, steroids, inhalers. As he improves, then probably transition to more of a chronic COPD management for now, with PFTs in about 6 to 8 weeks (and cessation of inhalers if they are normal, continuance of inhalers if they confirm COPD), repeat chest x-ray in about a month, sooner if there is any worsening. Continue antibiotics steroids inhalers and supportive care. Hopefully home tomorrow, may need supplemental oxygen for short period of time.. Delirium/metabolic encephalopathylikely due to infection/respiratory illness. Fortunately seems to have improved nicely Otherwise as above Subjective 72 yo male presented to ED on 09/04 from urgent care with a concern of pneumonia. He had 2-3 week of a cough productive of clear/white mucus and shortness of breath. No fever, nausea, vomiting or diarrhea. Per history from his he had a few days of a head cold that improved for two days and then progressed to cough and SOB. He had a pneumonia approximately 4 years ago with sepsis at that admission. Today Mood feels improved from yesterday. He continues to have a cough but feels the shortness of breath is improved and he continues to be comfortable at rest and ambulating to the bathroom. He has no SHAH, lightheadedness, nausea, vomiting, diarrhea, or chest pain. Patient has at home pulse ox but notes it to be low accuracy. Review of Systems Review of Systems: See HPI Physical Exam Constitutional: WD/WN, vitals as above Eyes: PERRL, conjunctivae normal, anicteric sclerae ENMT: external ear and nose normal, oropharynx normal Respiratory: normal respiratory effort Auscultation: lungs clear to auscultation bilaterally and + diminished lung sounds Left lower lobe Cardiovascular: RRR, no murmur, no edema Gastrointestinal (Abdomen): normal bowel sounds, soft, nontender, no hepatosplenomegaly Psychiatric: A+Ox3, euthymic affect Results & Data Results & Data ([facility]) Vital Signs (Past 12 Hours) Vital Signs Temp Pulse Resp BP Pulse Ox O2 Del Method O2 Flow Rate 09/06/22 09:01 Nasal Cannula 2 09/06/22 07:36 36.5 C 62 16 99/64 L 94 Nasal Cannula 2 09/05/22 21:44 36.6 C 62 16 99/62 L 96 Nasal Cannula 2 Laboratory Results 09/06/22 06:34 09/06/22 06:34 (1) Pneumonia Laterality: bilateral Lung location: unspecified part of lung Pneumonia type: due to unspecified organism Qualified Code(s): J18.9 - Pneumonia, unspecified organism
[2022-09-06] MEDS: AMOXICILLIN/CLAVULANATE 875 MG TAB PO SCH (20:06)
[2022-09-06] MEDS: ENOXAPARIN INJ 40 MG/0.4 ML SYR SQ SCH (20:07)
--- NOTE | 2022-09-06 20:36 | Billing Data ---
Date of Service September 06, 2022 Coding Level of Care Code 93129 SUB INP/OBS CARE
[2022-09-07] MEDS: LEVOTHYROXINE SODIUM 175 MCG TABLET PO SCH (06:09)
[2022-09-07 06:33] LABS: Basophils # (auto) 0.02 K/uL (0-0.2); Basophils % (auto) 0.2 %; Eosinophils # (auto) 0.01 K/uL (0-0.50); Eosinophils % (auto) 0.1 %; Hemoglobin 9.8 g/dl (14.0-18.0); Immature Granulocytes # (auto) 0.04 K/uL (0.01-0.20); Immature Granulocytes % (auto) 0.4 %; Lymphocytes # (auto) 1.48 K/uL (1.2-3.4); Lymphocytes % (auto) 16.6 %; Mean Corpuscular Hemoglobin 30.5 pg (25.0-34.0); Mean Corpuscular Hgb Conc 33.8 g/dL (32.0-36.0); Mean Corpuscular Volume 90.3 fL (80.0-100.0); Mean Platelet Volume 8.7 fL (9.4-12.4); Monocytes # (auto) 0.58 K/uL (0.11-0.59); Monocytes % (auto) 6.5 %; Neutrophils % (auto) 76.2 %; Platelet Count 291 K/uL (130-400); RDW Coefficient of Variation 12.4 % (11.5-14.5); RDW Standard Deviation 41.2 fL (36.4-46.3); Red Blood Count 3.21 M/uL (4.70-6.10); White Blood Count 8.93 K/ul (4.8-10.8)
[2022-09-07 06:46] LABS: Albumin Globulin Ratio 0.9 (0.9-2); Albumin Level 2.7 gm/dl (3.4-5.0); BUN Creatinine Ratio 18.3 (10-20); Bilirubin,Total 0.2 mg/dl (0.2-1.0); Calcium 8.2 mg/dl (8.5-10.1); Creatinine Clr Calc Pharmacy 109.7 ml/min; Est GFR (African American) 117.2 ml/min; Est GFR (Non-African American) 101.2 ml/min; Globulin 3.1 gm/dl (2.5-4.0); Potassium 3.6 mmol/L (3.5-5.1); Total Protein 5.8 gm/dl (6.0-8.3)
[2022-09-07] MEDS: UMECLIDINIUM BROMIDE 62.5MCG/BLISTER 7 PUFFS/INHALER INH SCH (08:41)
[2022-09-07] MEDS: AMOXICILLIN/CLAVULANATE 875 MG TAB PO SCH (08:42)
[2022-09-07] MEDS: predniSONE 20 MG TAB PO SCH (08:42)
--- NOTE | 2022-09-07 10:05 | Discharge Summary ---
Date of Service September 07, 2022 Admission HPI Per Admitting Provider Bebo Stark is a 72-year-old male smoker who presents to the ER on the advice of [facility] due to pneumonia and hypoxia. Difficult to get a history from the patient as he initially tells me he does not want to talk to me. However with some persuasion from his he reports a 10-day history of progressively worsening cough, decreased appetite, shortness of breath, dizziness on exertion. No sinus pain, chest pain, abdominal pain, nausea, vomiting, fever, chills, diarrhea, constipation, melena, bright red blood in stool, hemoptysis, hematemesis. He is a current smoker with 10 cigarettes a day. No known COPD and has never needed an inhaler for respiratory illnesses. Admission Exam Per Admitting Provider Constitutional: well developed and + ill appearing; + not well nourished and no acute distress Eyes: + anicteric sclerae; normal pupil size Respiratory: normal respiratory effort; no respiratory distress Auscultation: + diminished lung sounds (Posteriorly) Cardiovascular: RRR, no murmur, no edema Gastrointestinal (Abdomen): normal bowel sounds, soft, nontender, no hepatosplenomegaly Skin: no rashes, warm and dry Neurologic: moves all extremities and awake; not confused Psychiatric: A+Ox3, euthymic affect Principal Diagnosis Pneumonia Discharge Exam Constitutional WD/WN, vitals as above Eyes PERRL, conjunctivae normal, anicteric sclerae ENMT external ear and nose normal, oropharynx normal Respiratory normal respiratory effort and + cough Auscultation: lungs clear to auscultation bilaterally and + diminished lung sounds (Left lower lobe) Cardiovascular RRR, no murmur, no edema Gastrointestinal (Abdomen) normal bowel sounds, soft, nontender, no hepatosplenomegaly Psychiatric A+Ox3, euthymic affect Discharge Data Allergies Allergy/AdvReac Type Severity Reaction Status Date / Time gabapentin Allergy Intermediate CAUSED Verified 09/04/22 17:13 TINNITIS capsaicin AdvReac Mild NAUSEA/VOMI Verified 09/04/22 17:13 TTING celecoxib AdvReac Mild SICK TO Verified 09/04/22 17:13 STOMACH diclofenac AdvReac Mild NAUSEA/VOMI Verified 09/04/22 17:13 TTING ibuprofen AdvReac Mild NAUSEA/VOMI Verified 09/04/22 17:13 TTING methocarbamol AdvReac Mild CAN NOT Verified 09/04/22 17:13 TAKE MUSCLE RELAXERS, CAN'T FUNCTION MUSCLE RELAXERS AdvReac Mild "HEAD Uncoded 09/04/22 17:13 FEELS FUNNY" Consultations 09/04/22 18:31 ED Decision to Admit Stat Hospital Course (1) Pneumonia: 72 yo male presented with 2 weeks of progressively worsening cough and shortness of breath following a URI. Differential includes pneumonia vs. COPD exacerbation given long standing smoking history and CXR consistent with both infiltrates and emphysema. - CXR showed emphysemic changes and infiltrates - Blood cultures no growth at 48 hours - Community acquired pneumonia coverage: 1 dose Ceftriaxone 1000mg given in the ED, Unasyn 3 g IV every 6 hourly, changed to Augmentin BID (09/06) (7 days) plus azithromycin 500 mg (3 days) started 09/05. Azithromycin complete, Augmentin 5 days remaining - Prednisone 40 mg q.d started 09/05 for possible COPD exacerbation, taper to start 09/08, drop 10mg every 2 days - On 2L oxygen, satting 95%, 89% on room air. Passed 2-step on 09/07, no need for home oxygen - Albuterol PRN and Incruse inhalers, continue on discharge - Benzonatate PRN for cough - Incentive spirometer - Recommend outpatient PFTs in 6-8 weeks to evaluate for emphysema/COPD, can d/c inhalers at this time if normal - Recommend repeat CXR in 4-6 weeks (2) Hypothyroidism: - TSH 0.838 in July 2022 - Continue levothyroxine 175 mcg p.o. daily (3) Chronic pain: - Unable to clarify [place] on PDMP as does not appear to be working correctly - Acetaminophen as needed (4) Tobacco abuse: - Patient declines nicotine patch - Encouraged smoking cessation Total Time Total Time Spent Total Time Spent (In Minutes): <30 Discharge Plan Discharge Items Patient Disposition: Home - Self-Care Reason For Visit: PNEUMONIA, HYPOXIA Discharge Diagnosis: pneumonia Activity: Per Instructions section Non-emergency contact: Primary Care Provider and [facility] Worker Call non-emergency contact if: you have any medication questions, your symptoms worsen and your temperature is above 101 Follow-up/Referrals: Ferny Helms MD [Primary Care Provider] - 09/11/22 10:15 am Diet: Heart Healthy Addtl Attending Provider Instructions: You were admitted to [facility] due to pneumonia. As such, you were treated with Unasyn initially and were then transition to an oral version of this called Augmentin,, which you will continue to take for another 5 days. We recommend a follow-up chest x-ray in a month. It is also likely that you have a component of COPD. We recommend that you have pulmonary function test done in 6 to 8 weeks please follow-up with your primary care provider to discuss your hospitalization and have a's test ordered. For your presumed COPD exacerbation you will be sent home with as needed albut collin inhaler and daily inhaler with Incruse Ellipta. You will also finish out a steroid taper to help with inflammation in your lungs. You will take prednisone 30 mg for 2 days, then 20 mg for 2 days, then 10 mg for 2 days, then stop. You were evaluated for possible oxygen needs but were found to need no oxygen at baseline. If you develop any new or worsening of your previous symptoms please return to the ED for reevaluation. Pending Studies at Discharge: No Stand-Alone Forms: [facility], Smoking Cessation Medications and DC Order Prescriptions: New amoxicillin-pot clavulanate 875-125 mg tablet 1 tab PO BID Qty: 10 0RF Incruse Ellipta 62.5 mcg/actuation blister with device 1 inh inhalation DAILY Qty: 30 0RF benzonatate 100 mg capsule 100 mg PO TID PRN (Reason: cough) Qty: 30 0RF albuterol sulfate 90 mcg/actuation HFA aerosol inhaler 1 inh inhalation Q4H PRN (Reason: shortness of breath or wheezing) Qty: 8.5 0RF prednisone 10 mg tablet See Rx Instructions .ROUTE .COMPLEX Qty: 12 0RF Rx Instructions: Take 3 pills (30mg) daily for 2 days, then 2 pills (20mg) daily for 2 days, then 1 pill (10mg) daily for 2 days, then stop. Continued hydrocodone-acetaminophen 10-325 mg tablet 1 tab PO Q4H PRN (Reason: pain) 30 Days Qty: 180 0RF levothyroxine 175 mcg tablet 175 mcg PO QAM Discharge Orders: Discharge Order (Routine); Ordered 09/07/22 Ordered By: Jesus Plaza Admission Data Admit Date/Time: 09/04/22 18:53 Attending Provider: Trace Bryant Admit Provider: Brock Santiago Primary Care Provider: Ferny Helms Other Providers: Brock Santiago Other Interventions: Discharge Summary Assessment (RN) Last Done: 09/07/22 12:34 Supervising Physician Co-Signing Physician Notes I personally examined the patient and verified all hubbard points of history and exam, discussed case, and agree with decision making with S Carlos MS4 Feels better and would like to go home. Fortunately did not need oxygen. Answered all questions the best my ability and his satisfaction. Outlined anticipated progression towards baseline. Vitals noted, in general he is awake and alert oriented pleasant no distress. HEENT normocephalic atraumatic mucous membranes moist. Breathing unlabored no accessory muscle use good effort. Skin shows no rashes no pallor or icterus. Neuro without focal deficits. Community-acquired (possible gram-negative) pneumonia with mild hypoxic r espiratory failure/mild hypercapnic respiratory failuretreat as CAP with presumed COPD exacerbation as wellantibiotics, steroids, inhalers. Has improved, safe/stable for homefinish out antibiotics, taper steroids. Continue anticholinergic inhaler along with short acting beta agonist rescue inhalerPFTs in about 6-8 weeks, and then if COPD, obviously continue inhalers and if not can DC. Delirium/metabolic encephalopathylikely due to infection/respiratory illness. Fortunately seems to have improved nicely Otherwise as above, stable for home
--- NOTE | 2022-09-07 16:18 | Billing Data ---
Date of Service September 07, 2022 Coding Level of Care Code HOSP INP/OBS DISCH 30 MIN/LESS
== END 2022-09-07 14:12 | disposition home or self-care (01) | DRG 177 ==
LOC: ED 15:03 → EDINP 18:53 → SUATTDRO 18:53 → 3E 22:09